=== PATIENT | female | born 1935 | race Caucasian/White ===

== ENCOUNTER 2019-01-09 00:01 | Inpatient (IN) | payer MEDICARE ==
[2019-01-09] VITALS (7 sets, daily range): BP systolic 102–149; BP diastolic 54–93; PULSE 83–103; TEMP 98.4–99
[~2019-01-09] VITALS: Ht 152.4 cm; Wt 84.2 kg
[2019-01-09] MEDS ORDERED: KLOR-CON SPRINK8 MEQ (00:29)
[2019-01-09] MEDS ORDERED: ACCUPRIL5MGTAB (00:29)
[2019-01-09] MEDS ORDERED: KAPSPARGO SPRIN25 MG (00:29)
[2019-01-09 00:43] LABS: HEMOGLOBIN 13.8 g/dl (12.5-16.0); MEAN CELL VOLUME 92 fl (80.0-100.0); MEAN CORPUSCULAR HEMOGLOBIN 31 pg (27.0-31.0); MEAN CORPUSCULAR HGB CONC 34 g/dl (33.0-37.0); MEAN PLATELET VOLUME 8.7 fl (7.4-10.4); PLATELET COUNT 411 K/mm3 (130-400); RED BLOOD COUNT 4.45 M/mm3 (4.10-5.30); REDCELL DISTRIBUTION WIDTH-CV 12.7 % (11.5-14.5)
[2019-01-09 00:53] LABS: ALANINE AMINOTRANSFERASE 20 U/L (9-52); ALBUMIN 4.1 gm/dL (3.5-5.0); ALKALINE PHOSPHATASE 250 U/L (50-136); ANION GAP 16 mmol/L (7-16); AST,SGOT 33 U/L (15-37); BILIRUBIN,TOTAL 0.3 mg/dL (0.0-1.0); BLOOD UREA NITROGEN 17 mg/dL (7-17); CALCIUM 9.8 mg/dL (8.4-10.2); CARBON DIOXIDE 22 mmol/L (22-30); CHLORIDE 95 mmol/L (98-107); CREATININE, serum 0.92 (0.52-1.25); GLUCOSE 148 mg/dL (74-106); POTASSIUM 3.5 mmol/L (3.4-5.0); SODIUM 133 mmol/L (137-145); TOTAL PROTEIN 7.6 gm/dL (6.4-8.2)
[2019-01-09 01:04] LABS: LIPASE 140 U/L (23-300)
[2019-01-09 01:05] LABS: C-REACTIVE PROTEIN < 0.5 mg/dL (0.0-0.9)
[2019-01-09 01:12] LABS: TROPONIN-I 0.012 ng/mL (0.000-0.035)
[2019-01-09 01:39] LABS: BAND 12 % (0-10); LYMPHOCYTE 10 % (20.0-51.0); NEUTROPHILS 76 % (42.0-75.2); PLATELET ESTIMATE INCREASED (NORMAL)
[2019-01-09 01:40] LABS: ANISOCYTOSIS 1+; POIKILOCYTOSIS 1+
[2019-01-09] MEDS ORDERED: LOPRESSOR 225 MG/TAB PO (03:03)
[2019-01-09] MEDS ORDERED: QUINAPRIL HCTZ PO (03:05)
[2019-01-09] MEDS ORDERED: K-DUR20 MEQ PO (03:06)
[2019-01-09] MEDS ORDERED: TRAVATAN Z 5 ML5 ML OU (03:06)
--- NOTE | 2019-01-09 03:32 | NUR ---
Patient arrived to medical floor from ER, accompanied by daughter. Denies having pain and discomfort at this time. Reports occasional moist productive cough, with green sputum. No cough noted at this time, or sputum seen by this nurse. LS CTA. HRR. BSAx4. Peripheral IV to left AC patent, and site is without redness, warmth, swelling, and pain. NS running at 125 ml/hr. Completed Flagyl that was started in ER. Voices no needs or concerns at this time. Daughter left at this time. Oriented to room, bed, and call light. Resting in bed with eyes closed at this time. Call light is within reach.
[2019-01-09] MEDS ORDERED: ACCURETIC 25 MG1 TAB PO (04:08)
--- NOTE | 2019-01-09 06:23 | NUR ---
Patient has denied having pain and discomfort since arriving to medical floor. Was incontinent once so far this shift of stool. Stool had maria teresa red blood. Denied abdominal pain and discomfort. Pericare provided by staff. Wearing pull-ups for dignity and skin protection. Voices no other needs or concerns at this time. Received 2 out of 3 potassium replacements tabs so far, scheduled to get 3rd on next shift. Resting in bed with eyes closed at this time. Call light is within reach.
[2019-01-09 07:05] LABS: HEMOGLOBIN 12.5 g/dl (12.5-16.0); MEAN CELL VOLUME 93 fl (80.0-100.0); MEAN CORPUSCULAR HEMOGLOBIN 32 pg (27.0-31.0); MEAN CORPUSCULAR HGB CONC 34 g/dl (33.0-37.0); PLATELET COUNT 366 K/mm3 (130-400); RED BLOOD COUNT 3.94 M/mm3 (4.10-5.30); REDCELL DISTRIBUTION WIDTH-CV 12.8 % (11.5-14.5)
[2019-01-09 07:07] LABS: HEMATOCRIT 36.8 % (37.0-47.0)
[2019-01-09 07:19] LABS: CALCIUM 8.9 mg/dL (8.4-10.2); CREATININE, serum 0.68 (0.52-1.25); MAGNESIUM 1.6 mg/dL (1.6-2.3)
[2019-01-09 07:31] LABS: BAND 22 % (0-10); LYMPHOCYTE 5 % (20.0-51.0); MYELOCYTE 0 % (0-0); NEUTROPHILS 71 % (42.0-75.2); PLATELET ESTIMATE NORMAL (NORMAL)
[2019-01-09 07:32] LABS: TOXIC GRANULATION PRESENT
--- NOTE | 2019-01-09 08:00 | NUR ---
Pt AAOx4 laying in bed, daughter at bedside, minimal complaints of pain. No abdominal guarding observe, LLQ and LMQ tenderness present upon palpation. Tolerating clear liquids - denies nausea or abdominal pain during/after eating. Call light within reach. Questions invited and answered
[2019-01-09 09:06] LABS: COLLECTION METHOD CLEAN CATCH
[2019-01-09 09:16] LABS: MUCOUS Present /lpf; PH 6 (5-8); SQUAMOUS EPITHELIAL 0-2 /hpf; URINE APPEARANCE Cloudy; URINE BACTERIA None Seen /hpf; URINE BILIRUBIN Negative (NEGATIVE); URINE BLOOD 3+ (NEGATIVE); URINE COLOR Yellow; URINE GLUCOSE Negative (NEGATIVE); URINE KETONE Negative (NEGATIVE); URINE LEUKOCYTE ESTERASE 2+ (NEGATIVE); URINE NITRATE Negative (NEGATIVE); URINE PROTEIN(semi-quant) 2+ (NEGATIVE); URINE RBC >50 /hpf; URINE UROBILINOGEN Negative (NEGATIVE)
--- NOTE | 2019-01-09 09:39 | NUR ---
LEDY met with the patient and patient's daughter, Karly, to discuss discharge plan. The patient lives alone in [place]. She was in [place] visiting family. She reports independence with ADLs and does not use any DME. The patient's PCP is Dr. Star Lopes and she receives her medications at a [facility]. She reports no difficulties obtaining her meds. The patinet does not have advanced directives, but she states that she does have them completed and that her other daughter is her DPOA-HC. The patient plans to return to her daughter, Annalisa's, home upon discharge; before returning back [place]. No additional needs at this time.
[2019-01-09 12:45] LABS: COLLECTION METHOD CLEAN CATCH
[2019-01-09 13:09] LABS: PH 8 (5-8); SQUAMOUS EPITHELIAL 0-2 /hpf; URINE APPEARANCE Cloudy; URINE BACTERIA None Seen /hpf; URINE BILIRUBIN Negative (NEGATIVE); URINE BLOOD 3+ (NEGATIVE); URINE COLOR Yellow; URINE GLUCOSE Negative (NEGATIVE); URINE KETONE Negative (NEGATIVE); URINE LEUKOCYTE ESTERASE 2+ (NEGATIVE); URINE NITRATE Negative (NEGATIVE); URINE PROTEIN(semi-quant) 2+ (NEGATIVE); URINE RBC >50 /hpf; URINE UROBILINOGEN Negative (NEGATIVE)
[2019-01-09 15:25] LABS: HEMATOCRIT 35.4 % (37.0-47.0)
--- NOTE | 2019-01-09 22:12 | NUR ---
Patient assessed at this time. Denies having pain and discomfort. LS CTA. Respirations even and unlabored. HRR. BSAx4. Reports she has not had a BM today. Denies having any nausea or abdominal pain at this time. No edema noted. Peripheral IV to left AC is patent, and site is without redness, warmth, pain, and swelling. Due to location, coban wrapped around site to prevent "distal occlusion." Attempted to restart IV to right forearm, but was unsuccessful. Patient ok with continuing to use left AC for now. NS continues to run at 200 ml/hr at this time. Once current bag is complete, NS will run at 100 ml/hr. Patient has been wearing SCDs to bilateral legs. Did request at break from wearing them for a while, as it was making her legs feel "jumpy." Patient complained of not being able to sleep, and requested sleeping pill. Asked if she had every taken sleeping pills before, and stated that she used to take an over the counter sleeping pill, melatonin. Called and spoke with Beckie, and order received for melatonin as requested. Voices no other needs or concerns at this time. Call light is within reach.
[2019-01-10 00:09] VITALS: BP 149/66; PULSE 83; TEMP 98.6
--- NOTE | 2019-01-10 01:58 | NUR ---
Patient has denied having pain and discomfort throughout this shift so far. NS continues to run at 100 ml/hr at this time. Resting in bed with eyes closed at this time. Call light is within reach.
[2019-01-10 03:48] VITALS: BP 162/72; PULSE 83; TEMP 98
--- NOTE | 2019-01-10 05:49 | NUR ---
Patient has denied having pain and discomfort throughout this shift. No bowel movement this shift. NS continues at 100 ml/hr per orders. Patient received Levaquin and Flagyl as ordered. Voices no needs or concerns at this time. Call light is within reach.
[2019-01-10 08:26] VITALS: BP 143/100; PULSE 82; TEMP 98.3
[2019-01-10 09:15] LABS: BASO % 0.2 % (0.0-2.0); EOS # 0.1 (0.0-0.7); EOS % 1.7 % (0-4.0); GRAN # 4.4 (1.4-6.5); GRAN % 68.3 % (42.2-75.2); HEMOGLOBIN 11.3 g/dl (12.5-16.0); LYMPH # 1.3 (1.2-3.4); LYMPH % 20.8 % (20.0-51.0); MEAN CELL VOLUME 93 fl (80.0-100.0); MEAN CORPUSCULAR HEMOGLOBIN 31 pg (27.0-31.0); MEAN CORPUSCULAR HGB CONC 34 g/dl (33.0-37.0); MEAN PLATELET VOLUME 8.6 fl (7.4-10.4); MONO # 0.5 (0.1-0.6); MONO % 8.4 % (1.7-9.3); PLATELET COUNT 300 K/mm3 (130-400); RED BLOOD COUNT 3.63 M/mm3 (4.10-5.30)
[2019-01-10 09:16] LABS: HEMATOCRIT 33.6 % (37.0-47.0)
[2019-01-10 09:24] LABS: CALCIUM 8.6 mg/dL (8.4-10.2); CREATININE, serum 0.46 (0.52-1.25); POTASSIUM 3.6 mmol/L (3.4-5.0)
--- NOTE | 2019-01-10 11:37 | NUR ---
First visit from the double needle operator lockstitch. No needs right now.
[2019-01-10 12:30] VITALS: BP 156/92; PULSE 69; TEMP 97.9
[2019-01-10 16:53] VITALS: BP 178/82; PULSE 76; TEMP 98.6
[2019-01-10 20:45] VITALS: BP 189/84; PULSE 78; TEMP 98.7
--- NOTE | 2019-01-10 23:05 | NUR ---
Completed assessment and medication administration; PT tolerated all cares and medications; PT denies further needs or concerns at time of assessment; No further assessed or verbalized concerns at time of exit; PT able to return to a comfortable position in bed with personal items and call light within reach; IV fluids continue to RFA; NS at 75ml/hr; Will continue to monitor. CDA
[2019-01-11 01:30] VITALS: BP 160/86; PULSE 80; TEMP 97.8
--- NOTE | 2019-01-11 03:27 | NUR ---
PT resting intermittently in new room; Frequent toileting with assistance; Utilizing bed alarm; PT IV replaced to RFA and NS running at 75ml/hr; PT denies change in congnitive status, blurting out name, , home address, hospital, and reason for admission; Acute anxiety verbalized during IV removal and episode of acute disstress and/or disorientation; PT has personal items and call light within reach; No further assessed or verbalized concerns at time of rounds; PT able to return to a comfortable position in bed; Will continue to monitor. CDA
[2019-01-11 06:43] LABS: BASO % 0.4 % (0.0-2.0); EOS # 0.2 (0.0-0.7); EOS % 2.9 % (0-4.0); GRAN # 3.3 (1.4-6.5); GRAN % 59.8 % (42.2-75.2); HEMOGLOBIN 11.4 g/dl (12.5-16.0); LYMPH # 1.5 (1.2-3.4); LYMPH % 27.1 % (20.0-51.0); MEAN CELL VOLUME 91 fl (80.0-100.0); MEAN CORPUSCULAR HEMOGLOBIN 32 pg (27.0-31.0); MEAN CORPUSCULAR HGB CONC 34 g/dl (33.0-37.0); MEAN PLATELET VOLUME 9.1 fl (7.4-10.4); MONO # 0.5 (0.1-0.6); MONO % 9.3 % (1.7-9.3); PLATELET COUNT 320 K/mm3 (130-400); RED BLOOD COUNT 3.62 M/mm3 (4.10-5.30); REDCELL DISTRIBUTION WIDTH-CV 12.8 % (11.5-14.5)
[2019-01-11 06:52] LABS: HEMATOCRIT 33.1 % (37.0-47.0)
[2019-01-11 06:58] LABS: CALCIUM 8.7 mg/dL (8.4-10.2); CREATININE, serum 0.41 (0.52-1.25); POTASSIUM 3.1 mmol/L (3.4-5.0)
--- NOTE | 2019-01-11 07:05 | NUR ---
Report given to NIKKY Lisa; No significant changes or concerns at time of shift change. CDA
[2019-01-11 08:21] VITALS: BP 141/65; PULSE 87; TEMP 98.8
--- NOTE | 2019-01-11 08:36 | NUR ---
Pt sitting in room, denies any pain. Pt is alert and oriented, sitting in chair, chair alarm on. Pt refused socks, yellow gown on and fall risk signs in place. Asked pt to hit call light if she needs anything at all or wants to go to restroom or back to bed. Completed morning assessment and vitals. Breathing even and unlabored. Denies shortness of breat. Potassuim being replaced. Denies any needs.
--- NOTE | 2019-01-11 11:23 | NUR ---
IV removed, catheter tip intact, no redness or swelling noted. All discharge paperwork given, questions asked and answered. All belongings with pt, escorted out via wheelchair by [facility] staff.
== END 2019-01-11 11:24 | disposition home or self-care (01) | DRG 394 ==
LOC: COL.ER 00:01 → MEDICAL 02:09
PROVIDERS: Emergency Medicine; Nurse Practitioner Family; Physician Assistant; ADMIT Family Medicine
DX: K55.9 Vascular disorder of intestine, unspecified (principal); N39.0 Urinary tract infection, site not specified; R65.10 Systemic inflammatory response syndrome (SIRS) of non-infectious origin without acute organ dysfunction; E27.9 Disorder of adrenal gland, unspecified; I10 Essential (primary) hypertension; N28.9 Disorder of kidney and ureter, unspecified; H40.9 Unspecified glaucoma; M47.9 Spondylosis, unspecified; I95.1 Orthostatic hypotension; E87.6 Hypokalemia; Z87.891 Personal history of nicotine dependence; Z98.1 Arthrodesis status
CPT/HCPCS: 99222-AI; 99232-AI; 99239; J1956; J7030; Q9967